=== PATIENT | female | born 2000 | race Caucasian/White ===

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

== ENCOUNTER 2020-03-22 17:01 | Emergency (ER) | payer BC, OTHER ==
[~2020-03-22] VITALS: Ht 172.7 cm; Wt 78.0 kg
[2020-03-22 17:06] VITALS: BP 124/61
--- NOTE | 2020-03-22 17:15 | NUR ---
ICE PACK PROVIDED.
== END 2020-03-22 18:59 | disposition home or self-care (01) ==
LOC: ED 18:52
DX: S93.491A Sprain of other ligament of right ankle, initial encounter (principal); W10.9XXA Fall (on) (from) unspecified stairs and steps, initial encounter; Y93.89 Activity, other specified; Y92.69 Other specified industrial and construction area as the place of occurrence of the external cause; Y99.0 Civilian activity done for income or pay
CPT/HCPCS: 99283